=== PATIENT | male | born 1995 | race Two or more races ===

== ENCOUNTER 2020-01-15 15:42 | Outpatient (CLI) | payer OTHER | END 2020-01-15 17:15 | disposition home or self-care (01) | LOC: OFIC 805 15:42 | PROVIDERS: ATTEND Otolaryngology Otology & Neurotology | DX: L91.0 Hypertrophic scar (principal) ==

== ENCOUNTER 2020-02-12 13:59 | Outpatient (CLI) | payer OTHER | END 2020-02-12 17:00 | disposition home or self-care (01) | LOC: OFIC 805 13:59 | PROVIDERS: ATTEND Otolaryngology Otology & Neurotology | DX: L91.0 Hypertrophic scar (principal); L73.0 Acne keloid ==